=== PATIENT | female | born 1950 | race Caucasian/White ===

== ENCOUNTER 2022-07-29 10:48 | Outpatient (CLI) | payer OTHER, SELFPAY ==
--- NOTE | ~2022-07-29 | XR_ITS ---
EXAMINATION: XR chest 2V Exam Date/Time: 07/29/2022 11:10 CDT HISTORY: INFLAMMATORY ARTHRITIS, TECHNICAL MAINTENANCE SPECIALIST MED USE Comparison: None available. RESULT: Lines, tubes, and devices: Cholecystectomy clips. Lungs and pleura: Clear. Cardiomediastinal silhouette: Stable. Other: No acute osseous or upper abdominal finding. IMPRESSION: No acute cardiopulmonary process. Reviewed, dictated and finalized at location K.
== END 2022-07-29 10:49 | disposition home or self-care (01) ==
LOC: ANHIMG 10:54
PROVIDERS: PCP Internal Medicine; Visit Provider Nurse Practitioner Family
DX: M13.88 Other specified arthritis, other site (principal)
CPT/HCPCS: 71046

== ENCOUNTER 2022-08-05 20:04 | Observation (INO) | payer OTHER, SELFPAY ==
--- NOTE | ~2022-08-05 | XR_ITS ---
EXAMINATION: XR chest 2V Exam Date/Time: 08/05/2022 20:18 CDT HISTORY: mid sternal chest pain onset this P.M.; non smoker Comparison: 07/29/2022. RESULT: Lines, tubes, and devices: Cholecystectomy clips. Lungs and pleura: Clear. Mild senescent change. Cardiomediastinal silhouette: Stable. Other: No acute osseous or upper abdominal finding. IMPRESSION: No acute cardiopulmonary process. Reviewed, dictated and finalized at location K.
--- NOTE | 2022-08-05 20:05 | ECG_ITS ---
Measurements Intervals [place] Rate: 63 P: 54 MS: 136 QRS: 31 QRSD: 94 T: 89 QT: 361 QTc: 372 Interpretive Statements SINUS RHYTHM EARLY PRECORDIAL R/S TRANSITION BORDERLINE ECG COMPARED TO ECG 05/30/2019 13:57:47 NO SIGNIFICANT CHANGES Electronically Signed On 08-05-2022 21:54:29 CDT by Mehran Singh D.O.
[2022-08-05 20:06] VITALS: BP 161/66; PULSE 63; RESP 16; TEMP 36.2; O2SAT 99
[2022-08-05 20:25] LABS: Basophils Percent Auto 0.4 % (0.2-1.2); Eosinophils Absolute Auto 0.2 K/mm3 (0-0.3); Eosinophils Percent Auto 1.4 % (0-4.4); Hematocrit 43.9 % (37.0-47.0); Hemoglobin 14.4 g/dL (12.0-15.0); Immature Granulocyte Absolute 0.18 K/mm3 (0.00-0.031); Immature Granulocyte Percent A 1.7 % (0-0.5); Lymphocytes Absolute Auto 2.79 K/mm3 (0.9-3.2); Lymphocytes Percent Auto 26.5 % (18.3-44.2); Mean Corpuscular HGB Conc 32.8 g/dl (32-36); Mean Corpuscular Hemoglobin 30.8 pg (26-34); Mean Corpuscular Volume 93.8 fl (80-100); Mean Platelet Volume 9.1 fl (7.4-10.4); Monocytes Absolute Auto 0.9 K/mm3 (0.1-0.6); Monocytes Percent Auto 8.3 % (2.6-8.5); Neutrophils Absolute Auto 6.5 K/mm3 (1.3-6.7); Neutrophils Percent Auto 61.7 % (45.5-73.1); Platelet Count Result 251 k/mm3 (150-375); Red Blood Count 4.68 M/mm3 (4.2-5.4); Red Cell Distribution Width 13.4 % (11.5-14.5); White Blood Count 10.5 K/mm3 (4.5-10.0)
[2022-08-05 20:35] LABS: Alanine Aminotransferase 25 U/L (6-35); Albumin Level 3.9 g/dL (3.5-5.1); Alkaline Phosphatase 45 U/L (38-126); Anion Gap 12 mmol/L (8-16); Aspartate Amino Transferase 26 U/L (14-36); Bilirubin,Total 0.5 mg/dL (0.2-1.3); Blood Urea Nitrogen 30 mg/dL (7-17); Carbon Dioxide 25 mmol/L (22-30); Chloride 99 mmol/L (98-107); Estimated CRCL calculation 54 ml/min; Estimated Glomerular Filt Rate > 60; Glucose 98 mg/dL (65-110); Lipase 246 U/L (23-300); Potassium 3.5 mmol/L (3.4-5.0); Sodium 136 mmol/L (137-145)
[2022-08-05 20:36] LABS: Prothrombin Time 12.3 Seconds (11.1-14.7)
[2022-08-05 20:37] LABS: Partial Thromboplastin Time 23.5 SECONDS (22.3-36.8)
[2022-08-05 20:47] LABS: Troponin I < 0.012 ng/mL (0.000-0.034)
--- NOTE | 2022-08-05 21:05 | PC.NURSE ---
Per EDP Vida Gerardo do not administer aspirin
--- NOTE | 2022-08-05 22:05 | ED.CHESTPAIN ---
HPI - Chest Pain General Chief Complaint: Chest Pain <RANDI Estrada Last Filed: 08/06/22 02:03> Stated Complaint: chest pain/neck pain <RANDI Estrada Last Filed: 08/06/22 02:03> Time Seen by Provider: 08/05/22 21:21 <RANDI Estrada Last Filed: 08/06/22 02:03> Source: patient <RANDI Estrada Last Filed: 08/06/22 02:03> Mode of arrival: ambulatory <RANDI Estrada Last Filed: 08/06/22 02:03> Limitations: no limitations <RANDI Estrada Last Filed: 08/06/22 02:03> History of Present Illness HPI narrative: Patient is a 71-year-old female who presents the ED with report of chest pain. Patient reports she had just finished eating dinner tonight around 7 pm when she developed midsternal chest pain described as a heaviness, which radiated up to her throat and left-sided neck. She thought it may just be indigestion. She tried taking Tums at that time but denied relief. No significant aggravating factors. She states the pain lasted about 1 hour before resolving to a dull ache. Minimal pain currently upon my evaluation. Patient denies a history of chest pain or previous issues with indigestion. No previous cardiac work-ups. History of high cholesterol but not currently on any medication. No history of hypertension, diabetes, smoking. Patient did report having slight dizziness with the CP, but denies any difficulty breathing, nausea, vomiting, abdominal pain, fever, cough, cold symptoms. Patient is scheduled to have a cervical spinal surgery next Thursday. <RANDI Estrada Last Filed: 08/06/22 02:03> Related Data Home Medications: Home Medications Medication Instructions Recorded Confirmed calcium citrate 1,000 mg tablet 1,000 mg PO DAILY 08/06/22 08/06/22 cholecalciferol (vitamin D3) 10 500 unit PO DAILY 08/06/22 08/06/22 mcg (400 unit) tablet (Vitamin D3) escitalopram oxalate 10 mg tablet 10 mg PO DAILY 08/06/22 08/06/22 glucosamine sulf dipot 2 cap PO DAILY 08/06/22 08/06/22 chlr,msm,chond 550 mg-C 30 mg-clive 1 mg capsule (Glucosamine Chondroitin) hydroxychloroquine 200 mg tablet 200 mg PO BID 08/06/22 08/06/22 levothyroxine 100 mcg tablet 100 mcg PO DAILY 08/06/22 08/06/22 prednisone 10 mg tablet 10 mg PO BID 08/06/22 08/06/22 psyllium husk 0.52 gram capsule 1 g PO DAILY 08/06/22 08/06/22 (Fiber-Caps (psyllium husk)) <Vida Groves PA-C - Last Filed: 08/06/22 02:03> Allergies/Adverse Reactions: Allergies Allergy/AdvReac Type Severity Reaction Status Date / Time Sulfa (Sulfonamide Allergy Mild Hives Verified 08/06/22 01:03 Antibiotics) cefazolin [From [facility]] Allergy Hives Verified 08/06/22 01:03 <Vida Groves PA-C - Last Filed: 08/06/22 02:03> Review of Systems Review of Systems: CONSTITUTIONAL: Denies fever, chills, or sweats. ENT: Denies rhinorrhea, congestion, sore throat. CARDIOVASCULAR: Reports midsternal chest pain radiating up to neck and throat. Denies edema. RESPIRATORY: Denies cough or dyspnea. GASTROINTESTINAL: Denies abdominal pain, nausea, vomiting, or diarrhea. NEUROLOGIC: Reports dizziness. Denies headache, numbness, or weakness. <Vida Groves PA-C - Last Filed: 08/06/22 02:03> All systems reviewed & are unremarkable except as noted in HPI and below <RANDI Estrada Last Filed: 08/06/22 02:03> [facility] Past Medical History Medical History: Medical History Cervical spinal stenosis History of hyperlipidemia Rheumatoid arthritis <RANDI Estrada Last Filed: 08/06/22 02:03> Surgical History Surgical History: Surgical History No pertinent past surgical history <Vida Groves PA-C - Last Filed: 08/06/22 02:03> Family History Family History: Family History
--- NOTE | 2022-08-05 22:06 | PC.NURSE ---
Patient refused IV in ED
[2022-08-05 23:28] VITALS: BP 136/62; PULSE 69; RESP 20; O2SAT 97
[2022-08-05 23:29] VITALS: PULSE 64
[2022-08-05 23:57] LABS: Troponin I < 0.012 ng/mL (0.000-0.034)
[2022-08-06] VITALS (11 sets, daily range): BP systolic 123–149; BP diastolic 57–73; PULSE 54–115; RESP 16–20; TEMP 36.2–36.7; O2SAT 97–99; BMI 27.0
--- NOTE | 2022-08-06 | EST_ITS ---
Patient Info Name: Gema Arias Age: 71 years : 1950 Gender: Female Ht: 67 in Wt: 172 lbs BSA: 1.94 m2 HR: 59 bpm BP: 145 / 67 mmHg Heart Rhythm: Sinus Rhythm Technical Quality: Fair Exam Date: 08/06/2022 12:06 PM Exam Location: [facility] Patient Status: Inpatient Admit Date: 08/06/2022 Staff Ordering Physician: Andrew Bingham MD Project Hire: Liz Rolle RDCS Attending Provider: ZACHERY Referring Physician: Zachery MOTTA; Exam Type: CA stress echo Study Info Indications R07.9 - Chest pain, unspecified Strain analysis performed. Treadmill exercise stress echocardiogram is performed. Summary 1. Normal sinus rhythm. 2. No abnormal ST/T wave changes with exercise. 3. No arrhythmias were observed during the examination. 4. Normal left venticular systolic function with no regional wall motion abnormalities noted at rest. 5. No regional wall motion abnormalities noted post stress. 6. Normal augmentation of all wall segments without evidence of ischemia with stress. 7. Normal left ventricular systolic function after exercise. Stress Echo Findings Left Ventricle Normal left venticular systolic function with no regional wall motion abnormalities noted at rest. No regional wall motion abnormalities noted post stress. Normal augmentation of all wall segments without evidence of ischemia with stress. Normal left ventricular systolic function after exercise. Protocol: Phill Stress ECG Details Stage: REST Duration (min): 1 min : 46 sec Speed (mph): 0.0 Grade (%): 0 HR (bpm): 60 SBP (mmHg): 145 DBP (mmHg): 67 METS: --- Stage: REST Duration (min): 17 min : 7 sec Speed (mph): 0.0 Grade (%): 0 HR (bpm): 66 SBP (mmHg): 145 DBP (mmHg): 67 METS: --- Stage: STAGE 1 Duration (min): 1 min : 0 sec Speed (mph): 1.7 Grade (%): 10 HR (bpm): 86 SBP (mmHg): 145 DBP (mmHg): 67 METS: --- Stage: STAGE 1 Duration (min): 2 min : 0 sec Speed (mph): 1.7 Grade (%): 10 HR (bpm): 96 SBP (mmHg): 145 DBP (mmHg): 67 METS: --- Stage: STAGE 1 Duration (min): 3 min : 0 sec Speed (mph): 1.7 Grade (%): 10 HR (bpm): 97 SBP (mmHg): 141 DBP (mmHg): 59 METS: --- Stage: STAGE 2 Duration (min): 1 min : 0 sec Speed (mph): 2.5 Grade (%): 12 HR (bpm): 108 SBP (mmHg): 141 DBP (mmHg): 59 METS: --- Stage: STAGE 2 Duration (min): 2 min : 0 sec Speed (mph): 2.5 Grade (%): 12 HR (bpm): 113 SBP (mmHg): 141 DBP (mmHg): 59 METS: --- Stage: STAGE 2 Duration (min): 3 min : 0 sec Speed (mph): 2.5 Grade (%): 12 HR (bpm): 119 SBP (mmHg): 141 DBP (mmHg): 59 METS: --- Stage: STAGE 3 Duration (min): 1 min : 0 sec Speed (mph): 3.4 Grade (%): 14 HR (bpm): 130 SBP (mmHg): 141 DBP (mmHg): 59 METS: --- Stage: STAGE 3 Duration (min): 1 min : 33 sec Speed (mph): 3.4 Grade (%): 14 HR (bpm): 106 SB
--- NOTE | 2022-08-06 00:44 | PM.IMHP ---
H&P: HPI History of Present Illness Date/Time: 08/06/22 00:44 Chief Complaint: 71 years old female with past medical history of hyperlipidemia number toward or tried is presented to the hospital with chest pain heaviness in nature started after finishing dinner lasted 1 hour radiating to the neck and the jaw associated with dizziness denies shortness of breath or fever at the ER EKG no significant finding does not have elevated troponin cardiology was consulted plan for stress test today Review of Systems Review of Systems: 12 system review was done negative except above PMFSH Past Medical History Medical History Cervical spinal stenosis History of hyperlipidemia Rheumatoid arthritis Surgical History Surgical History No pertinent past surgical history Social History Social History Smoking status: Former smoker Meds Vital Signs Vital Signs - 24 hr 08/05/22 20:06 08/05/22 23:28 08/05/22 23:29 Temperature 97.2 F L Pulse Rate 63 69 64 Respiratory Rate 16 20 Blood Pressure 161/66 H 136/62 Pulse Oximetry 99 97 Oxygen Delivery Room Air Exam Narrative: GENERAL: Well appearing, well-nourished, non-toxic, in no acute distress. HEAD: Normocephalic, atraumatic. NECK: Supple. No adenopathy, no masses. RESPIRATORY: Airway patent, respirations nonlabored. Clear to auscultation bilaterally, no rales, rhonchi, wheezing. CARDIOVASCULAR: Regular rate and rhythm without murmurs, rubs, or gallops. Peripheral pulses 2+ and equal bilaterally. ABDOMINAL: Soft, nontender, nondistended, no hepatosplenomegaly. Normoactive BS. MUSCULOSKELETAL: Moves all extremities. Strength/ROM intact without gross deformities or TTP. No edema. No calf tenderness. No chest wall tenderness palpation. SKIN: Warm, dry, normal color. No rashes. NEURO: A&O X3. moves all extremities PSYCHIATRIC: Appropriate mood and affect. Normal interaction. H&P: Results Labs Labs: Short CBC 08/05/22 Range/Units 20:20 WBC 10.5 H (4.5-10.0) K/mm3 Hgb 14.4 (12.0-15.0) g/dL Hct 43.9 (37.0-47.0) % Plt Count 251 (150-375) k/mm3 BMP 08/05/22 20:20 Sodium 136 L Potassium 3.5 Chloride 99 Carbon Dioxide 25 BUN 30 H Creatinine 0.80 Glucose 98 Calcium 8.0 L Cardiac Enzymes 08/05/22 08/05/22 Range/Units 20:20 23:27 Troponin I < 0.012 < 0.012 (0.000-0.034) ng/mL Liver Function 08/05/22 Range/Units 20:20 Total Bilirubin 0.5 (0.2-1.3) mg/dL AST 26 (14-36) U/L ALT 25 (6-35) U/L Alkaline Phosphatase 45 (38-126) U/L Albumin 3.9 (3.5-5.1) g/dL Assessment and Plan Assessment and plan (1) Chest pain: Qualifiers: Chest pain type: unspecified Qualified Code(s): R07.9 - Chest pain, unspecified Code(s): R07.9 - Chest pain, unspecified Status: Acute Assessment and Plan: rule out ACS serial cardiac marker ECG cardiology consult tele monitor NPO except meds stress test today (2) Cervical spinal stenosis: Code(s): M48.02 - Spinal stenosis, cervical region Status: Acute Assessment and Plan: pain control (3) History of hyperlipidemia: Code(s): Z86.39 - Personal history of other endocrine, nutritional and metabolic disease Status: Acute Assessment and Plan: lipid panel statin (4) Rheumatoid arthritis: Code(s): M06.9 - Rheumatoid arthritis, unspecified Status: Acute Assessment and Plan: continue home medication Quality VTE Prophylaxis VTE prophylaxis: pharmacologic ordered
--- NOTE | 2022-08-06 01:40 | ADMGEN ---
This patient, Gema Arias, was admitted to IMU Room 214-01. Patient/family oriented to hospital policies and general routines including ID bracelet, bed and alarms, visiting hours, pain management, procedures, bathroom and other care routines, personal items, smoking policy, room service/diet, and visiting hours. Information on how to activate the Rapid Response Team has been discussed. Patient/Family are encouraged to report perceived risks to care and to ask questions if they do not understand what they are told or what they should do.
[2022-08-06] MEDS: ASPIRIN 81 MG ENTERIC TABLET PO (02:41)
[2022-08-06] MEDS: SODIUM CHLORIDE 0.9% IV 1,000 ML 75 ML IV CONT (02:43)
[2022-08-06 02:50] LABS: Basophils Percent Auto 0.5 % (0.2-1.2); Eosinophils Absolute Auto 0.1 K/mm3 (0-0.3); Eosinophils Percent Auto 1.7 % (0-4.4); Hemoglobin 14.5 g/dL (12.0-15.0); Immature Granulocyte Absolute 0.11 K/mm3 (0.00-0.031); Immature Granulocyte Percent A 1.3 % (0-0.5); Lymphocytes Absolute Auto 2.87 K/mm3 (0.9-3.2); Lymphocytes Percent Auto 33.9 % (18.3-44.2); Mean Corpuscular HGB Conc 32.2 g/dl (32-36); Mean Corpuscular Hemoglobin 30.7 pg (26-34); Mean Corpuscular Volume 95.3 fl (80-100); Mean Platelet Volume 9.3 fl (7.4-10.4); Monocytes Absolute Auto 0.7 K/mm3 (0.1-0.6); Monocytes Percent Auto 7.9 % (2.6-8.5); Neutrophils Absolute Auto 4.6 K/mm3 (1.3-6.7); Neutrophils Percent Auto 54.7 % (45.5-73.1); Platelet Count Result 240 k/mm3 (150-375); Red Blood Count 4.72 M/mm3 (4.2-5.4); Red Cell Distribution Width 13.4 % (11.5-14.5); White Blood Count 8.5 K/mm3 (4.5-10.0)
[2022-08-06 03:04] LABS: Alanine Aminotransferase 26 U/L (6-35); Albumin Level 3.9 g/dL (3.5-5.1); Alkaline Phosphatase 45 U/L (38-126); Anion Gap 10 mmol/L (8-16); Aspartate Amino Transferase 24 U/L (14-36); Bilirubin,Total 0.5 mg/dL (0.2-1.3); Blood Urea Nitrogen 26 mg/dL (7-17); Calcium 8.5 mg/dL (8.4-10.2); Carbon Dioxide 30 mmol/L (22-30); Chloride 98 mmol/L (98-107); Estimated CRCL calculation 48 ml/min; Estimated Glomerular Filt Rate > 60; Glucose 88 mg/dL (65-110); Potassium 3.6 mmol/L (3.4-5.0); Sodium 138 mmol/L (137-145)
[2022-08-06 03:16] LABS: Troponin I < 0.012 ng/mL (0.000-0.034)
[2022-08-06 05:51] LABS: Free T4 Free Thyroxine Reflex 1.04 ng/dL (0.78-2.19)
[2022-08-06 07:41] LABS: Total Triiodothyronine (T3) 0.67 NG/ML (0.97-1.69)
[2022-08-06] MEDS: HYDROXYCHLOROQUINE SULFATE 200 MG TABLET PO (10:04)
[2022-08-06] MEDS: LEVOTHYROXINE SODIUM 100 MCG TABLET PO (10:04)
[2022-08-06] MEDS: ESCITALOPRAM OXALATE 10 MG TABLET PO (10:04)
[2022-08-06] MEDS: ENOXAPARIN 40 MG/0.4 ML SYRINGE SUB-Q (10:05)
[2022-08-06] MEDS: predniSONE 10 MG TABLET PO (10:05)
[2022-08-06] MEDS: ATORVASTATIN 20 MG TABLET PO (10:05)
[2022-08-06] MEDS: FAMOTIDINE 20 MG TABLET PO (10:05)
[2022-08-06 11:15] LABS: Cholesterol 196 mg/dL (0-200); HDL Direct 61 mg/dL; Triglycerides 92 mg/dL (<150)
[2022-08-06 11:26] LABS: LDL Cholesterol Direct 98 mg/dL
--- NOTE | 2022-08-06 15:43 | PM.DS ---
DS: Admitting Diagnosis Discharge Date 08/06/22 Admitting Diagnosis Chest pain DS: Discharge Diagnosis Discharge Diagnosis (1) Chest pain: Qualifiers: Chest pain type: unspecified Qualified Code(s): R07.9 - Chest pain, unspecified Code(s): R07.9 - Chest pain, unspecified Status: Acute (2) Cervical spinal stenosis: Code(s): M48.02 - Spinal stenosis, cervical region Status: Acute (3) History of hyperlipidemia: Code(s): Z86.39 - Personal history of other endocrine, nutritional and metabolic disease Status: Acute (4) Rheumatoid arthritis: Code(s): M06.9 - Rheumatoid arthritis, unspecified Status: Acute DS: Summary Hospital Course Reason for hospitalization: 71yo female with RA and HLD here for chest pain. Please see H&P for details Hospital Course: Patient presents to the emergency of chest pain. EKG shows normal sinus rhythm early transition. No significant change from prior EKG from 2019. Troponin was negative x3. CBC was within normal limits. CMP normal except for BUN 26 probably related to prednisone. Triglycerides 92, cholesterol 196, LDL 98 and HDL 61. TSH was elevated 14.7 with a normal free T4 1.04; total T3 is low at 0.67. She was recently started prednisone for pinched nerve which may be contributing to the abnormal TSH. She states that she has been compliant with her Synthroid and her TSH is checked yearly. Chest x-ray was clear. She was admitted to the IMU. Cardiology was consulted. She underwent a stress Echo which showed no concerning findings by report (results pending). Possibly her chest pain related to esophageal spasm. She overall did well and was able to be discharged home on 08/06/22. She is scheduled for a neck surgery and recommended she request the records for her physicians. Status at Discharge Cognitive/behavioral status at discharge: Stable Time Spent with Patient Time attestation: Total time spent providing and/or coordinating discharge services: 32 minutes Time spent: Greater than 30 minutes Exam Narrative: AF 97.2 123/57 7316 98% ra Gen - NARD Chest - CTA bilaterally, nml RR CV - RRR S1/S2. Telemetry showing significant dysrhythmias Abd - Soft, NT/ND, Positive BS Ext - No pedal edema Neuro - Alert and oriented. Nonfocal exam. Psych - Nml mood and affect Skin - Warm and dry DS: Data Data Completed and Pending Labs on day of discharge: Labs from last 24 hours 08/06/22 08/06/22 08/06/22 02:08 02:08 02:08 WBC RBC Hgb Hct MCV MCH MCHC RDW Plt Count MPV Immature Gran % (Auto) Neut % (Auto) Lymph % (Auto) [place] % (Auto) Eos % (Auto) Baso % (Auto) Lymph # (Auto) [place] # (Auto) Eos # (Auto) Baso # (Auto) Abs Immat Gran (auto) Absolute Neuts (auto) Absolute Nucleated RBC Nucleated RBC % PT INR APTT Sodium 138 Potassium 3.6 Chloride 98 Carbon Dioxide 30 Anion Gap 10 BUN 26 H Creatinine 0.90 Estim Creat Clear Calc 48 Estimated GFR > 60 Glucose 88 Calcium 8.5 Total Bilirubin 0.5 AST 24 ALT 26 Alkaline Phosphatase 45 Troponin I Total Protein 7.0 Albumin 3.9 Triglycerides Cholesterol LDL Cholesterol Direct HDL Direct Lipase TSH (Reflex) Free T4 1.04 Total T3 0.67 L 08/06/22 08/06/22 08/06/22 02:08 02:08 02:08 WBC 8.5 RBC 4.72 Hgb 14.5 Hct 45.0 MCV 95.3 MCH 30.7 MCHC 32.2 RDW 13.4 Plt Count 240 MPV 9.3 Immature Gran % (Auto) 1.3 H Neut % (Auto) 54.7 Lymph % (Auto) 33.9 [place] % (Auto) 7.9 Eos % (Auto) 1.7 Baso % (Auto) 0.5 Lymph # (Auto) 2.87 [place] # (Auto) 0.7 H Eos # (Auto) 0.1 Baso # (Auto) 0.0 Abs Immat Gran (auto) 0.11 H Absolute Neuts (auto) 4.6 Absolute Nucleated RBC 0.0 Nucleated RBC % 0.0 PT INR APTT Sod
--- NOTE | 2022-08-06 16:07 | PM.CNCAR ---
Assessment and Plan Assessment and plan (1) Chest pain: Qualifiers: Chest pain type: unspecified Qualified Code(s): R07.9 - Chest pain, unspecified Code(s): R07.9 - Chest pain, unspecified Status: Acute (2) Cervical spinal stenosis: Code(s): M48.02 - Spinal stenosis, cervical region Status: Acute (3) History of hyperlipidemia: Code(s): Z86.39 - Personal history of other endocrine, nutritional and metabolic disease Status: Acute (4) Rheumatoid arthritis: Code(s): M06.9 - Rheumatoid arthritis, unspecified Status: Acute Plan Will obtain treadmill stress echo. If stress echo without significant findings, can discharge home with outpatient follow-up. History of Present Illness History of Present Illness Consult date/time: 08/06/22 16:07 Requesting physician: Vida Groves PA-C Consult reason: chest pain Reason For Visit: Chest Pain Narrative: Patient is a 71-year-old female with a history of rheumatoid arthritis, cervical spinal stenosis, history of hyperlipidemia who presented with chest pain. Had epigastric pain that radiated up her chest and neck that began at 7PM yesterday evening while sitting. Lasted for about an hour or so. Had a repeat episode of mild chest tightness since then. Symptoms not associated with exertion. No family history of premature CAD. Troponins negative x 3. Has planned cataract surgery tomorrow, and surgery for cervical spinal stenosis next week. Former smoker, quit more than 30 years ago. Not on medication for history of hyperlipidemia. Was diagnosed with rheumatoid arthritis last fall. Does not exercise due to her arthritis. On prednisone for her spinal stenosis, started a few weeks ago. Review of Systems Constitutional: Constitutional: Denies body ache(s), Denies chills, Denies night sweats and Denies weakness Cardiovascular: Cardiovascular: Reports as per HPI Respiratory: Respiratory: Denies dyspnea and Denies dyspnea on exertion Gastrointestinal: Gastrointestinal: Denies abdominal pain, Denies heartburn, Denies nausea and Denies vomiting Musculoskeletal: Musculoskeletal: Reports no additional musculoskeletal complaints Neurologic: Reports system reviewed and no additional complaints, except as documented Hematologic/Lymphatic: Hematologic/Lymphatic: Denies easy bleeding and Denies easy bruising PMFSH Past Medical History Medical History Cervical spinal stenosis History of hyperlipidemia Rheumatoid arthritis Surgical History Surgical History No pertinent past surgical history Family History Family History Father Diabetes mellitus Heart disease Mother Ovarian cancer Social History Social History Smoking status: Former smoker Alcohol intake: current Drinks per week: 2 Substance use: never Spiritual care concerns: No Meds Home Medications and Allergies Home Medications Medication Instructions Recorded Confirmed Type calcium citrate 1,000 mg tablet 1,000 mg PO DAILY 08/06/22 08/06/22 History cholecalciferol (vitamin D3) 10 500 unit PO DAILY 08/06/22 08/06/22 History mcg (400 unit) tablet (Vitamin D3) escitalopram oxalate 10 mg tablet 10 mg PO DAILY 08/06/22 08/06/22 History glucosamine sulf dipot 2 cap PO DAILY 08/06/22 08/06/22 History chlr,msm,chond 550 mg-C 30 mg-clive 1 mg capsule (Glucosamine Chondroitin) hydroxychloroquine 200 mg tablet 200 mg PO BID 08/06/22 08/06/22 History levothyroxine 100 mcg tablet 100 mcg PO DAILY 08/06/22 08/06/22 History prednisone 10 mg tablet 10 mg PO BID 08/06/22 08/06/22 History psyllium husk 0.52 gram capsule 1 g PO DAILY 08/06/22 08/06/22 History (Fiber-Caps (psyllium husk)) Allergies Allergy/AdvReac Type Severity Reaction S
== END 2022-08-06 16:15 | disposition home or self-care (01) ==
LOC: ANHED 08-06 00:41 → ANHIMU 08-06 09:32
PROVIDERS: Internal Medicine; Admitting Provider Internal Medicine; Emergency Provider Preventive Medicine Aerospace Medicine; PCP Internal Medicine; Visit Provider Internal Medicine
DX: R07.9 Chest pain, unspecified (principal); M48.02 Spinal stenosis, cervical region; Z86.39 Personal history of other endocrine, nutritional and metabolic disease; R42 Dizziness and giddiness; M06.9 Rheumatoid arthritis, unspecified; Z79.52 Long term (current) use of systemic steroids; Z79.899 Other long term (current) drug therapy; Z82.49 Family history of ischemic heart disease and other diseases of the circulatory system
CPT/HCPCS: 36415; 71046; 80053; 80061; 83690; 84439; 84443; 84480; 84484; 85025; 85610; 85730; 93005; 93351; 96360; 96361; 96372; 99285; A9270; G0378; J1650; J7030; J7512

== ENCOUNTER 2023-08-20 08:20 | Outpatient (CLI) | payer OTHER, SELFPAY ==
--- NOTE | ~2023-08-20 | XR_ITS ---
Left Knee Technique: AP, lateral, and sunrise views were obtained. Clinical History: Pain Findings: No fracture or dislocation is seen. Osseous alignment is anatomic. There is severe osteoart hritis of the patellofemoral compartment, with joint space narrowing and large osteophytes. There is moderate degenerative change of the medial and lateral compartments. There is probable chondrocalcino sis of menisci. No joint effusion is seen. Impression: Moderate to severe tricompartmental osteoarthritis, as detailed above, worst in the patellofemoral co mpartment. Chondrocalcinosis of the menisci. Reviewed, dictated and finalized at location . Impression: Moderate to severe tricompartmental osteoarthritis, as detailed above, worst in the patellofemoral compartment. Chondrocalcinosis of the menisci.
--- NOTE | ~2023-08-20 | XR_ITS ---
AP and lateral views of the bilateral hips Clinical history: Pain Findings: No acute fracture or dislocation is seen. Osseous alignment is anatomic. Bilateral hip and SI joint spaces are preserved. Soft tissues are unremarkable. Impression: No significant abnormality is seen. Reviewed, dictated and finalized at location . Impression: No significant abnormality is seen.
--- NOTE | ~2023-08-20 | XR_ITS ---
EXAMINATION: XR pelvis 1-2V INDICATION: Bilateral hip pain TECHNIQUE: AP view of the pelvis is obtained. COMPARISON: None available FINDINGS: Bone alignment is normal. There is no fracture. There are changes of fusion procedure at L5 -S1. Phleboliths are noted in the pelvis. IMPRESSION: 1. No acute osseous abnormality. Reviewed, dictated and finalized at location F.
--- NOTE | ~2023-08-20 | XR_ITS ---
Right Knee Technique: AP, lateral, and sunrise views were obtained. Clinical History: Pain Findings: No fracture or dislocation is seen. There is moderate tricompartmental osteoarthritis, with tricompartmental osteophyte formation. Soft tissues are unremarkable. No joint effusion is seen. Impression: Moderate tricompartmental osteoarthritis. Reviewed, dictated and finalized at location . Impression: Moderate tricompartmental osteoarthritis.
== END 2023-08-20 08:21 | disposition home or self-care (01) ==
PROVIDERS: PCP Internal Medicine; Visit Provider Nurse Practitioner Family
DX: M17.0 Bilateral primary osteoarthritis of knee (principal); M25.551 Pain in right hip; M25.561 Pain in right knee; M11.262 Other chondrocalcinosis, left knee
CPT/HCPCS: 72170; 73521; 73562

== ENCOUNTER 2023-11-14 09:33 | Emergency (ER) | payer OTHER, SELFPAY ==
[2023-11-14 09:46] VITALS: BP 135/74; PULSE 67; RESP 18; TEMP 36.7; O2SAT 99
[2023-11-14 11:25] VITALS: BP 123/76; PULSE 67; RESP 18; O2SAT 99
[2023-11-14] MEDS: LIDO 1%/EPINEPHRINE 1:100,000 20 ML VIAL 5 ML INFILTRATE (12:07)
--- NOTE | 2023-11-14 12:31 | ED.GENADULT ---
HPI - General Adult General Chief complaint: Unspecified Stated complaint: hemorrhoid Time Seen by Provider: 11/14/23 11:39 Source: patient, RN notes reviewed and old records reviewed Mode of arrival: ambulatory Limitations: no limitations History of Present Illness HPI narrative: This is a 72 year old female who presents for evaluation of a thrombosed hemorrhoid. She developed painful hemorrhoid 5 days ago. She denies any bleeding, abdominal pain, nausea or vomiting. She was evaluated at an urgent care and she was prescribed anusol. Related Data Home Medications Medication Instructions Recorded Confirmed calcium citrate 1,000 mg tablet 1,000 mg PO DAILY 08/06/22 08/06/22 cholecalciferol (vitamin D3) 10 500 unit PO DAILY 08/06/22 08/06/22 mcg (400 unit) tablet (Vitamin D3) escitalopram oxalate 10 mg tablet 10 mg PO DAILY 08/06/22 08/06/22 glucosamine sulf dipot 2 cap PO DAILY 08/06/22 08/06/22 chlr,msm,chond 550 mg-C 30 mg-clive 1 mg capsule (Glucosamine Chondroitin) hydroxychloroquine 200 mg tablet 200 mg PO BID 08/06/22 08/06/22 levothyroxine 100 mcg tablet 100 mcg PO DAILY 08/06/22 08/06/22 prednisone 10 mg tablet 10 mg PO BID 08/06/22 08/06/22 psyllium husk 0.52 gram capsule 1 g PO DAILY 08/06/22 08/06/22 (Fiber-Caps (psyllium husk)) Allergies Allergy/AdvReac Type Severity Reaction Status Date / Time Sulfa (Sulfonamide Allergy Mild Hives Verified 11/14/23 10:26 Antibiotics) cefazolin [From Ancef] Allergy Hives Verified 11/14/23 10:26 Review of Systems Review of Systems: All systems reviewed & are unremarkable except as noted in HPI and below PMFSH Past Medical History Medical History Cervical spinal stenosis History of hyperlipidemia Rheumatoid arthritis Surgical History Surgical History No pertinent past surgical history Family History Family History Father Diabetes mellitus Heart disease Mother Ovarian cancer Social History Social History Smoking status: Former smoker Alcohol intake: current Drinks per week: 2 Substance use: never Spiritual care concerns: No Exam Narrative: GENERAL: Well-appearing, well-nourished, and in no acute distress. HEAD: Normocephalic, atraumatic EYES: and EOMI, conjunctiva clear without discharge THROAT:Mucous membranes moist, NECK: Supple, without lymphadenopathy or mass RESPIRATORY: No respiratory distress, Airway patent, ABDOMEN: Soft, nontender, nondistended, normal active bowel sounds. No masses. No rebound or guarding, No organomegaly. large thrombose hemorrhoid at 6 o clock, no bleeding, purplish hue EXTREMITIES: No edema, normal strength with full range of motion. SKIN: Warm, dry, normal color without rash NEURO: Alert and oriented x3. CN 2-12 grossly intact. No focal deficits. PSYCH: Normal mood and affect. Course Reevaluation(s) Reevaluation #1: I discussed with patient risk of performed this incision for hemorrhoid. I was able to remove clots and get it smaller. I Discussed risk of continued bleeding and reoccurring thrombosis. It has been emphasized to patient that she needs follow up with surgeon for definitive treatment. Date: 11/14/23 Time: 12:33 Vital Signs Vital signs: Vital Signs Temperature 98.0 F 11/14/23 09:46 Pulse Rate 67 11/14/23 09:46 Respiratory Rate 18 11/14/23 09:46 Blood Pressure 135/74 11/14/23 09:46 Pulse Oximetry 99 11/14/23 09:46 Oxygen Delivery Room Air 11/14/23 09:46 Temperature 98.0 F 11/14/23 09:46 Pulse Rate 67 11/14/23 11:25 Respiratory Rate 18 11/14/23 11:25 Blood Pressure 123/76 11/14/23 11:25 Pulse Oximetry 99 11/14/23 11:25 Oxygen Delivery Room Air 11/14/23 09:46 Procedures Abscess I/D thrombosed
--- NOTE | 2023-11-14 12:53 | PC.NURSE ---
provided pt with 4x4 g[address]ze [address] in incision site per MD request
== END 2023-11-14 12:54 | disposition home or self-care (01) ==
PROVIDERS: Emergency Provider General Practice; PCP Internal Medicine
DX: K64.5 Perianal venous thrombosis (principal); M06.9 Rheumatoid arthritis, unspecified
CPT/HCPCS: 46083; 99283